=== PATIENT | male | born 1950 | race Caucasian/White ===

== ENCOUNTER 2016-05-31 16:47 | Emergency (ER) | payer OTHER ==
[~2016-05-31] VITALS: Ht 177.8 cm; Wt 70.3 kg
[2016-05-31 17:00] VITALS: BP 101/73; PULSE 75; RESP 20; TEMP 97.3; O2SAT 97
--- NOTE | 2016-05-31 17:04 | NUR ---
Pt placed to ER waiting room in stable condition.
--- NOTE | 2016-05-31 17:50 | NUR ---
Pt presents to ED c/o urinary retention since this AM. Pt has distention noted to lower abd. Pt tried to urinate w/o success.No med hx.
--- NOTE | 2016-05-31 17:55 | NUR ---
# 16 FR Sawant catheter with use of sterile technique. Immediate return of cc 400 urine noted. Bedside drainage bag placed below level of bladder. Urine sample collected and sent to lab. Pt tolerated procedure well. Patient arrived with sawant in place, changed due to standard of practice prior to admission. Patient unable to toilet self.
[2016-05-31 18:10] LABS: BILIRUBIN,URINE NEGATIVE (NEGATIVE); CLARITY/URINE CLEAR (CLEAR); COLOR,URINE YELLOW (YELLOW); GLUCOSE,URINE NEGATIVE (NEGATIVE); KETONES,URINE NEGATIVE (NEGATIVE); LEUKOCYTE ESTERASE ,URINE NEGATIVE (NEGATIVE); NITRITE, URINE NEGATIVE (NEGATIVE); PROTEIN URINE NEGATIVE (NEGATIVE); UROBILINOGEN,URINE 0.2 (0.2-1.0)
--- NOTE | 2016-05-31 18:30 | NUR ---
Pt has approx 850cc output at this time.Continuing to monitor. Awiaiting lab results for dispo.
[2016-05-31 18:42] LABS: BLOOD, URINE TRACE (NEGATIVE)
[2016-05-31 18:50] LABS: BASOPHILS % (AUTO) 0.3 % (0.0-2.0); EOSINOPHILS % (AUTO) 0.2 % (0.0-4.0); HEMATOCRIT 43.8 % (36-54); HEMOGLOBIN 15.2 g/dL (14.0-18.0); LYMPHOCYTES # (AUTO) 0.9 K/uL (1.0-5.5); LYMPHOCYTES % (AUTO) 8.8 % (20.5-51.5); MEAN CORPUSCULAR HEMOGLOBIN 30 pg (27-31); MEAN CORPUSCULAR HGB CONC 35 % (32-36); MEAN CORPUSCULAR VOLUME 86 fL (79.0-98.0); MONOCYTES # (AUTO) 0.4 K/uL (0.0-1.0); MONOCYTES % (AUTO) 4.1 % (1.7-9.3); NEUTROPHILS # (AUTO) 8.5 K/uL (1.8-7.7); NEUTROPHILS % (AUTO) 86.6 % (40.0-70.0); PLATELET COUNT (AUTO) 249 K/uL (130-430); RED CELL DISTRIBUTION WIDTH 13.2 % (9.0-15.0); WHITE BLOOD COUNT (AUTO) 9.8 K/uL (4.8-10.8)
[2016-05-31 19:05] LABS: CREATININE 0.96 mg/dL (0.55-1.30)
[2016-05-31 19:06] LABS: PROTHROMBIN TIME 10.7 SECS (9.5-12.5)
[2016-05-31 19:07] LABS: ALBUMIN 3.9 g/dL (3.4-4.8); TOTAL BILIRUBIN 0.4 mg/dL (0.0-1.0); TOTAL PROTEIN, SERUM 7.3 g/dL (6.4-8.3)
[2016-05-31 19:09] LABS: RBC,URINE 0-3 /HPF (0-3)
[2016-05-31 19:10] LABS: BACTERIA,URINE RARE /HPF (None Seen); MUCUS,URINE None Seen /LPF (None Seen); WBC,URINE 0-3 /HPF (0-3)
[2016-05-31 19:58] VITALS: BP 115/76; PULSE 78; RESP 18; TEMP 97.6; O2SAT 98
--- NOTE | 2016-05-31 19:58 | NUR ---
Patient given written and verbal discharge instructions and verbalizes understanding. ER MD discussed with patient the results and treatment provided. Patient in stable condition. ID arm band removed. Rx of Bactrim DS 800mg-160 mg given. Patient educated on pain management and to follow up with PMD. Pain Scale 0/10 Opportunity for questions provided and answered.
== END 2016-05-31 19:58 | disposition home or self-care (01) ==
LOC: SED 16:47
DX: R33.9 Retention of urine, unspecified (principal); F17.210 Nicotine dependence, cigarettes, uncomplicated
CPT/HCPCS: 36415; 80053; 81000-TC; 82150-TC; 83690-TC; 85025; 85610-TC; 85730-TC; 99284; 99285